=== PATIENT | female | born 1970 | race Caucasian/White ===

== ENCOUNTER 2021-10-12 20:22 | Emergency (ER) | payer OTHER ==
[~2021-10-12] VITALS: Ht 172.7 cm; Wt 95.3 kg
[2021-10-12] MEDS ORDERED: COZAAR PO ONE (20:23)
[2021-10-12 20:51] VITALS: BP 207/108
[2021-10-12] MEDS ORDERED: TYLENOL PO STA (20:55)
[2021-10-12] MEDS ORDERED: AUGMENTIN 875-125 TABLET PO STA (20:55)
--- NOTE | 2021-10-12 21:02 | ER.PDOC ---
General Chief Complaint: Toothache Stated Complaint: TOOTHACHE Time seen by MD: 06:34 Source: patient History of Present Illness Timing/Duration: gradual Severity: mild Allergies: Coded Allergies: No Known Allergies (Unverified , 10/12/21) Past Medical History Medical History: asthma, hypertension Surgical History: cholecystectomy, , hysterectomy Social History Alcohol Use: none Drug Use: none Mouth: pain All Other Systems: Reviewed and Negative Physical Exam General Appearance: alert, mild distress Head/Neck: head nml inspection, neck nml inspection Mouth: dental tenderness, widespread dental decay Throat: pharynx nml, voice nml Ears/Nose: nml inspection Respiratory: no resp. distress, lungs clear CVS: reg. rate & rhythm, heart sounds nml Abdomen: non-tender Skin Exam: Normal Color, Warm/Dry Results/Orders Results/Orders Orders - ALBERTO MEHTA MD Acetaminophen (Tylenol) (10/12/21 20:55) Amoxicillin/Potassium Clav (Augmentin 87 (10/12/21 20:55) Acetaminophen (Tylenol) (10/12/21 21:03) Amoxicillin/Potassium Clav (Augmentin 87 (10/12/21 21:03) Losartan Potassium (Cozaar) (10/12/21 21:16) Clonidine Hcl (Catapres) (10/12/21 21:48) Alprazolam (Xanax) (10/12/21 21:48) Clonidine Hcl (Catapres) (10/12/21 21:57) Alprazolam (Xanax) (10/12/21 21:58) Hydrocodone/Acetaminophen ([place] 5mg) (10/12/21 22:42) Hydrocodone/Acetaminophen ([place] 5mg) (10/12/21 22:46) Vital Signs Date Time Temp Pulse Resp B/P (MAP) Pulse Ox O2 Delivery O2 Flow Rate FiO2 10/12/21 22:44 98.1 72 16 176/93 (120) 99 Room Air 10/12/21 21:59 71 224/114 10/12/21 21:19 195/117 10/12/21 20:51 98.1 78 16 10/12/21 20:51 98.1 78 16 207/108 (141) 98 Room Air 10/12/21 20:51 98.1 78 16 98 Administered Medications Medications (Trade) Dose Ordered Sig/John Route PRN Reason Start Time Stop Time Status Last Admin Dose Admin Acetaminophen (Tylenol) 1,000 mg STAT STAT PO 10/12/21 20:55 10/12/21 20:57 DC 10/12/21 21:04 1,000 MG Acetaminophen/ Hydrocodone Bitart ([place] 5mg) 1 ea OT STAT PO 10/12/21 22:42 10/12/21 22:43 DC 10/12/21 22:47 1 EA Alprazolam (Xanax) 0.25 mg STAT STAT PO 10/12/21 21:48 10/12/21 21:50 DC 10/12/21 21:59 0.25 MG Amoxicillin/ Clavulanate Potassium (Augmentin 875-125 Tablet) 1 each STAT STAT PO 10/12/21 20:55 10/12/21 20:57 DC 10/12/21 21:04 1 EACH Clonidine (Catapres) 0.1 mg STAT STAT PO 10/12/21 21:48 10/12/21 21:50 DC 10/12/21 21:59 0.1 MG Losartan Potassium (Cozaar) 25 mg OT STAT PO 10/12/21 21:16 10/12/21 21:17 DC 10/12/21 21:19 25 MG ER DEPART Departure Time of Disposition: 06:36 Impression: Primary Impression: Gingivitis Additional Impressions: Oral cellulitis Acute pain Referrals: PCP,UNKNOWN (PCP) PRIMARY CARE PROVIDER Additional Instructions: n Duration or Time Spent with Pa: 1hr Return to Work/School Can a patient return to work?: Yes Can a patient return to school: Yes ALBERTO MEHTA MD Oct 12, 2021 21:02
[2021-10-12] MEDS ORDERED: TYLENOL PO ONE (21:03)
[2021-10-12] MEDS ORDERED: AUGMENTIN 875-125 TABLET ONE (21:03)
[2021-10-12] MEDS ORDERED: COZAAR PO STA (21:16)
[2021-10-12] MEDS ORDERED: XANAX PO STA (21:48)
[2021-10-12] MEDS ORDERED: CATAPRES PO STA (21:48)
[2021-10-12] MEDS ORDERED: CATAPRES ONE (21:57)
[2021-10-12] MEDS ORDERED: XANAX ONE (21:58)
[2021-10-12] MEDS ORDERED: MORPHINE SULFATE PO STA (22:25)
[2021-10-12] MEDS ORDERED: NORCO 5MG PO STA (22:42)
[2021-10-12 22:44] VITALS: BP 176/93
[2021-10-12] MEDS ORDERED: NORCO 5MG PO ONE (22:46)
== END 2021-10-12 22:50 | disposition home or self-care (01) ==
LOC: ER 20:22
DX: K05.10 Chronic gingivitis, plaque induced (principal); K12.2 Cellulitis and abscess of mouth; K08.89 Other specified disorders of teeth and supporting structures; J45.909 Unspecified asthma, uncomplicated; I10 Essential (primary) hypertension; Z90.710 Acquired absence of both cervix and uterus; Z90.89 Acquired absence of other organs
CPT/HCPCS: 99284; A9150